=== PATIENT | female | born 1990 | race Caucasian/White ===

== ENCOUNTER 2017-10-17 18:04 | Emergency (ER) | payer OTHER, SELFPAY ==
[2017-10-17 19:43] LABS: Absolute Lymphocytes (CBC) 2.4 K/uL (0.7-4.9); Absolute Monocytes 0.7 K/uL (0.1-1.3); Absolute Neutrophil 5.8 K/uL (1.8-8.0); Basophils % 0.4 % (0-1.3); Eosinophils % 2.7 % (0-4.4); Hematocrit 36.4 % (36.0-45.0); Lymphocytes % 26.3 % (15.3-44.8); MPV 8.8 fL (7.6-11.3); Monocytes % 7.2 % (3.3-12.3); RBC Red Blood Cell Count 4.34 M/uL (3.86-4.86)
[2017-10-17] MEDS ORDERED: NA CHLORIDE 0.9% 1,000 ML ONE (20:00)
[2017-10-17 20:07] LABS: Urine Blood 3+ (NEG); Urine Glucose NEGATIVE (NEG); Urine Protein 2+ (NEG); Urine pH 5.5 (5.0-7.0)
[2017-10-17 20:25] LABS: BUN Blood Urea Nitrogen 17 mg/dL (7-18); Bicarbonate 30 mmol/L (21-32); Glucose Level 103 mg/dL (74-106); HCG, Quantitative 70306 mIU/mL (1-3); Potassium 3.3 mmol/L (3.5-5.1); Sodium Level 135 mmol/L (136-145)
--- NOTE | 2017-10-17 20:41 | EDPHYS ---
Physician Documentation [facility] Name: Nabila Biswas Age: 27 yrs Sex: Female : 1990 Arrival Date: 10/17/2017 Time: 18:09 Bed 25 Private MD: ED Physician Olivier Holman HPI: 10/17 20:37 This 27 yrs old Female presents to ER via Ambulatory with complaints of parveen Vaginal Bleeding, + Preg <12wks. 20:37 The patient presents to the emergency department with vaginal bleeding, that is parveen moderate. The estimated gestational age is 8 weeks. course: care: private OB physician, felicia. Previous pregnancies: in previous pregnancies patient has had . Previous pregnancies: the patient has never been . The patient has experienced a previous episode, last year. 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 - Social history:: Smoking status: Patient/guardian denies using tobacco. - Ebola Screening: : Patient denies travel to an Ebola-affected area in the 21 days before illness onset. - Family history:: not pertinent. ROS: 20:37 Constitutional: Negative for fever, chills, and weight loss, Eyes: Negative for injury, parveen pain, redness, and discharge, ENT: Negative for injury, pain, and discharge, Neck: Negative for injury, pain, and swelling, Cardiovascular: Negative for chest pain, palpitations, and edema, Respiratory: Negative for shortness of breath, cough, wheezing, and pleuritic chest pain, Back: Negative for injury and pain, MS/Extremity: Negative for injury and deformity, Skin: Negative for injury, rash, and discoloration, Neuro: Negative for headache, weakness, numbness, tingling, and seizure, Psych: Negative for depression, anxiety, suicide ideation, homicidal ideation, and hallucinations, Allergy/Immunology: Negative for hives, rash, and allergies, Endocrine: Negative for neck swelling, polydipsia, polyuria, polyphagia, and marked weight changes, Hematologic/Lymphatic: Negative for swollen nodes, abnormal bleeding, and unusual bruising. 20:37 Abdomen/GI: Positive for abdominal pain, nausea and vomiting, of the left lower quadrant. 20:37 Back: Negative for injury or acute deformity, decreased range of motion, pain at rest, pain with movement, radiated pain. 20:37 : Positive for pelvic pain, vaginal bleeding. Exam: 20:37 Constitutional: This is a well developed, well nourished patient who is awake, alert, parveen and in no acute distress. Head/Face: Normocephalic, atraumatic. Eyes: Pupils equal round and reactive to light, extra-ocular motions intact. Lids and lashes normal. Conjunctiva and sclera are non-icteric and not injected. Cornea within normal limits. Periorbital areas with no swelling, redness, or edema. ENT: Nares patent. No nasal discharge, no septal abnormalities noted. Tympanic membranes are normal and external auditory canals are clear. Oropharynx with no redness, swelling, or masses, exudates, or evidence of obstruction, uvula midline. Mucous membranes moist. Neck: Trachea midline, no thyromegaly or masses palpated, and no cervical lymphadenopathy. Supple, full range of motion without nuchal rigidity, or vertebral point tenderness. No Meningismus. Chest/axilla: Normal chest wall appearance and motion. Nontender with no deformity. No lesions are appreciated. Cardiovascular: Regular rate and rhythm with a normal S1 and S2. No gallops, murmurs, or rubs. Normal PMI, no JVD. No pulse deficits. Respiratory: Lungs have equal breath sounds bilaterally, clear to auscultation and percussion. No rales, rhonchi or wheezes noted. No increased work of breathing, no retractions or nasal flaring. Abdomen/GI: Soft, non-tender, with normal bowel sounds. No distension or tympany. No guarding or rebound. No evidence of tenderness throughout. Back: No spinal tenderness. No costovertebral tenderness. Full range of motion. Female : Normal external genitalia. Skin: Warm, dry with normal turgor. Normal color with no rashes, no lesions, and no evidence of cellulitis. MS/ Extremity: Pulses equal, no cyanosis. Neurovascular intact. Full, normal range of motion. Neuro: Awake and alert, GCS 15, oriented to person, place, time, and situation. Cranial nerves II-XII grossly intact. Motor strength 5/5 in all extremities. Sensory grossly intact. Cerebellar exam normal. Normal gait. Psych: Awake, alert, with orientation to person, place and time. Behavior, mood, and affect are within normal limits. Vital Signs: 18:26 BP 141 / 102; Pulse 79; Resp 18; Temp 97.5; Pulse Ox 100% on R/A; Weight 104.33 kg; aj1 Height 5 ft. 1 in. (154.94 cm); Pain 5/10; 19:18 BP 128 / 79; Pulse 67; Resp 18; Pulse Ox 99% on R/A; mt 20:12 BP 121 / 77; Pulse 71; Resp 18; Pulse Ox 100% on R/A; Pain 5/10; ed1 21:22 BP 118 / 76; Pulse 84; Resp 16; Pulse Ox 100% on R/A; Pain 5/10; ed1 18:26 Body Mass Index 43.46 (104.33 kg, 154.94 cm) [facility] [place] MDM: 19:25 Patient medically screened. [facility] 19:25 Patient medically screened. [facility] 10/17 19:26 Order name: Quantitative Hcg; Complete Time: 20:30 [facility] 10/17 19:26 Order name: Abo/rh Typing; Complete Time: 20:30 [facility] 10/17 19:26 Order name: Basic Metabolic Panel; Complete Time: 20:30 [facility] 10/17 19:26 Order name: CBC with Diff; Complete Time: 20:30 [facility] 10/17 19:45 Order name: Urine Dipstick--Ancillary (enter results); Complete Time: 20:30 10/17 19:26 Order name: Urine Test (obtain specimen); Complete Time: 19:39 [facility] 10/17 19:26 Order name: IV Saline Lock; Complete Time: 19:39 [facility] 10/17 19:26 Order name: Labs collected and sent; Complete Time: 19:39 [facility] 10/17 19:26 Order name: NPO; Complete Time: 19:39 [facility] 10/17 19:26 Order name: US Transvaginal Ob [facility] 10/17 19:45 Order name: Urine --Ancillary (enter results); Complete Time: 20:30 10/17 19:26 Order name: Urine Dipstick-Ancillary (obtain specimen); Complete Time: 19:48 [facility] Administered Medications: 20:10 Drug: NS 0.9% 1000 ml Route: IV; Rate: 1 bolus; Site: right antecubital; ed1 21:23 Follow up: IV Status: Completed infusion; IV Intake: 1000ml ed1 20:49 Drug: Potassium Chloride 20 mEq Route: PO; ed1 21:23 Follow up: Response: No adverse reaction ed1 Disposition: 10/17/17 20:40 Discharged to Home. Impression: Threatened . - Condition is Stable. - Discharge Instructions: Threatened Miscarriage, First Trimester of , [id number], First Trimester of , Threatened Miscarriage, [id number], Pelvic Rest, Hypokalemia. - Prescriptions for Diclegis 10- 10 mg Oral tablet,delayed release (DR/EC) - take 1 tablet by ORAL route 3 times per day and 2 tablets at bedtime; 60 tablet. Vitamin 27- 0.8 mg Oral Tablet - take 1 tablet by ORAL route once daily; 30 tablet. - Medication Reconciliation Form, Thank You Letter, Antibiotic Education, Prescription Opioid Use, Work release form form. - Follow up: Private Physician; When: 2 - 3 days; Reason: Recheck today's complaints, Continuance of care, Re-evaluation by your physician. Follow up: Irasema Elliott MD; When: 2 - 3 days; Reason: Recheck today's complaints, Continuance of care, Re-evaluation by your physician. - Problem is new. - Symptoms have improved. Signatures: Dispatcher [employer] EDMT Carmen Hayden RN RN aj1 Olivier Holman MD MD cha Riggs, Erika, MEDICAL OFFICE ADMINISTRATOR MEDICAL OFFICE ADMINISTRATOR ed1 Corrections: (The following items were deleted from the chart) 21:23 20:40 10/17/2017 20:40 Discharged to Home. Impression: Threatened . Condition ed1 is Stable. Forms are Medication Reconciliation Form, Thank You Letter, Antibiotic Education, Prescription Opioid Use. Follow up: Private Physician; When: 2 - 3 days; Reason: Recheck today's complaints, Continuance of care, Re-evaluation by your physician. Follow up: Irasema Elliott; When: 2 - 3 days; Reason: Recheck today's complaints, Continuance of care, Re-evaluation by your physician. Problem is new. Symptoms have improved. parveen
--- NOTE | 2017-10-17 20:41 | ER ---
Nurse's Notes [facility] Name: Nabila Biswas Age: 27 yrs Sex: Female : 1990 Arrival Date: 10/17/2017 Time: 18:09 Bed 25 Private MD: Diagnosis: Threatened Presentation: 10/17 18:22 Presenting complaint: Patient states: Vaginal bleeding that started approximately 40 aj1 minutes ago, patient describes it as bright red bleeding, moderate in amount. States that she has had spotting but nothing this heavy, she has a history or previous tubal so she was advised by her OB to come to the ER for evaluation. Reports cramping that is more severe on the left side. Transition of care: patient was not received from another setting of care. Onset of symptoms was October 17, 2017 at 17:50. Risk Assessment: Do you want to hurt yourself or someone else? Patient reports no desire to harm self or others. Initial Sepsis Screen: Does the patient meet any 2 criteria? No. Patient's initial sepsis screen is negative. Does the patient have a suspected source of infection? No. Patient's initial sepsis screen is negative. Care prior to arrival: None. 18:22 Method Of Arrival: Ambulatory aj1 18:32 Acuity: JIMENA 3 aj1 Triage Assessment: 18:26 General: Appears in no apparent distress. uncomfortable, Behavior is calm, cooperative, aj1 appropriate for age. Pain: Complains of pain in left upper quadrant, right lower quadrant and left lower quadrant Pain does not radiate. Pain currently is 5 out of 10 on a pain scale. Quality of pain is described as crampy, Is intermittent. : Reports vaginal bleeding that is bright red, moderate flow. 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 - Social history:: Smoking status: Patient/guardian denies using tobacco. - Ebola Screening: : Patient denies travel to an Ebola-affected area in the 21 days before illness onset. - Family history:: not pertinent. Screenin:22 Abuse screen: Denies threats or abuse. Denies injuries from another. Nutritional ed1 screening: No deficits noted. Tuberculosis screening: No symptoms or risk factors identified. Fall Risk None identified. Assessment: 19:22 Obstetrical Assessment: General assessment: awake and alert, skin warm and dry, ed1 respirations even and unlabored, Patient reports abdominal cramping, bright red vaginal bleeding. General: Appears in no apparent distress. Behavior is calm, cooperative, Pt sitting up on bed talking with visitor.. Pain: Complains of pain in abdomen Pain does not radiate. Pain currently is 5 out of 10 on a pain scale. Quality of pain is described as aching, crampy, Pain began 4 hours ago. Is continuous. Neuro: Level of Consciousness is awake, alert, obeys commands, Oriented to person, place, time, situation. Cardiovascular: Denies chest pain, Heart tones S1 S2 present. Respiratory: Airway is patent Respiratory effort is even, unlabored, Respiratory pattern is regular, symmetrical, Breath sounds are clear bilaterally. GI: Abdomen is non-distended, Bowel sounds present X 4 quads. Patient currently denies diarrhea, nausea, vomiting. : Reports vaginal bleeding that is bright red. EENT: No signs and/or symptoms were reported regarding the EENT system. Derm: Skin is pink, warm \T\ dry. 19:30 Reassessment: No changes from previously documented assessment. I agree with this bb assessment. 20:12 Reassessment: Patient appears in no apparent distress at this time. No changes from ed1 previously documented assessment. Patient and/or family updated on plan of care and expected duration. Pain level reassessed. Patient is alert, oriented x 3, equal unlabored respirations, skin warm/dry/pink. 21:22 Reassessment: Patient appears in no apparent distress at this time. No changes from ed1 previously documented assessment. Patient and/or family updated on plan of care and expected duration. Pain level reassessed. Patient is alert, oriented x 3, equal unlabored respirations, skin warm/dry/pink. Vital Signs: 18:26 BP 141 / 102; Pulse 79; Resp 18; Temp 97.5; Pulse Ox 100% on R/A; Weight 104.33 kg; aj1 Height 5 ft. 1 in. (154.94 cm); Pain 5/10; 19:18 BP 128 / 79; Pulse 67; Resp 18; Pulse Ox 99% on R/A; mt 20:12 BP 121 / 77; Pulse 71; Resp 18; Pulse Ox 100% on R/A; Pain 5/10; ed1 21:22 BP 118 / 76; Pulse 84; Resp 16; Pulse Ox 100% on R/A; Pain 5/10; ed1 18:26 Body Mass Index 43.46 (104.33 kg, 154.94 cm) aj1 ED Course: 18:09 Patient arrived in ED. sb2 18:26 Arm band placed on Patient placed in waiting room, Patient notified of wait time. aj1 18:32 Triage completed. aj1 19:06 Nila Kan LVN is Primary Nurse. ed1 19:22 Patient has correct armband on for positive identification. Placed in gown. Bed in low ed1 position. Call light in reach. 19:25 Olivier Holman MD is Attending Physician. parveen 19:33 Initial lab(s) drawn, by me, sent to lab. Inserted saline lock: 20 gauge in right ed1 antecubital area, using aseptic technique. Blood collected. 19:34 Patient taken to ultrasound. via wheelchair. ed1 20:04 US Transvaginal Ob In Process Unspecified. EDMS 20:40 Irasema Elliott MD is Referral Physician. parveen 21:22 No provider procedures requiring assistance completed. IV discontinued, intact, ed1 bleeding controlled, No redness/swelling at site. Pressure dressing applied. Administered Medications: 20:10 Drug: NS 0.9% 1000 ml Route: IV; Rate: 1 bolus; Site: right antecubital; ed1 21:23 Follow up: IV Status: Completed infusion; IV Intake: 1000ml ed1 20:49 Drug: Potassium Chloride 20 mEq Route: PO; ed1 21:23 Follow up: Response: No adverse reaction ed1 Intake: 21:23 IV: 1000ml; Total: 1000ml. ed1 Outcome: 20:40 Discharge ordered by . parveen 21:22 Discharged to home ambulatory, with friend. ed1 21:22 Condition: good 21:22 Discharge instructions given to patient, Instructed on discharge instructions, follow up and referral plans. medication usage, Demonstrated understanding of instructions, follow-up care, medications, Prescriptions given X 2. 21:23 Patient left the ED. ed1 Signatures: Dispatcher [employer] EDCarmen Fitzgerald, EJ RN [email or web address] Olivier Holman MD MD cha Ballard, Brenda, Nila Dick RN, TUBING TESTER TUBING TESTER ed1 Bella Carrillo mt, Sheri sb2
[2017-10-17] MEDS ORDERED: POTASSIUM CL SA 10 MEQ TAB PO ONE (20:42)
--- NOTE | 2017-10-17 21:12 | RAD REPORT ---
EXAM DESCRIPTION: US - Transvaginal OB - 10/17/2017 8:04 pm CLINICAL HISTORY: Abdominal pain and cramping, positive , history of ectopic COMPARISON: None. FINDINGS: Single intrauterine gestation is identified. [place]-rump length corresponds to a 8 week 0 d ay age. Calculated EUNICE is 05/29/2018. Heart rate is 168 BPM. A small 12 mm crescent-shaped subchorion ic hemorrhage is present not seen as significant. Gestational sac and yolk sac have a normal appearan ce but the sac is relatively low in the uterus. Cervical canal is closed. No fluid or hemorrhage in the cul-de-sac. No ovarian or adnexal abnormality. No suspicion for concurr ent ectopic . IMPRESSION: Single 8 week 0 day IUP positioned low in the uterus. Calculated EUNICE is 05/29/2018. Heart rate is 160 BPM. No adnexal abnormality.
== END 2017-10-17 21:23 | disposition home or self-care (01) ==
LOC: ER 18:04
DX: O20.0 Threatened abortion (principal); Z3A.08 8 weeks gestation of pregnancy
CPT/HCPCS: 36415; 76817; 80048; 81003; 81025; 84702; 85025; 86900; 86901; 96360; 99284; J7030